=== PATIENT | male | born 1965 | race Caucasian/White ===

== ENCOUNTER 2018-02-07 16:45 | Emergency (ER) | payer OTHER, SELFPAY ==
[2018-02-07 16:54] VITALS: BP 145/100; PULSE 77; RESP 16; O2SAT 96; BMI 27.3
--- NOTE | 2018-02-07 19:29 | ED.UPPEXIN ---
HPI - Extremity Injury (Upper) <Mirlande Hope PA-C - Last Filed: 02/07/18 22:26> General Chief Complaint: Extremity Injury, Upper Stated Complaint: HIT RT THUMB AT WORK Time Seen by Provider: 02/07/18 19:27 Source: patient Mode of arrival: ambulatory Limitations: no limitations History of Present Illness HPI narrative: This 52-year-old left handed gentleman hit his right thumb with a hammer at work. He states it has been sore, swollen and bruised. This happened this morning. He noticed some bleeding under the nail and tried to drain it but was unable due to pain. He denies any other injury, and states that pain and swelling have improved. He does not know the date of his last tetanus vaccine. He denies any other injury Related Data Allergies Allergy/AdvReac Type Severity Reaction Status Date / Time No Known Drug Allergies Allergy Verified 02/07/18 18:21 Review of Systems <Mirlande Hope PA-C - Last Filed: 02/07/18 22:26> Review of Systems All systems reviewed & are unremarkable except as noted in HPI and below Exam <Mirlande Hope PA-C - Last Filed: 02/07/18 22:26> Narrative Exam Narrative: GENERAL APPEARANCE: Patient sitting comfortably, in no distress. LUNGS: Clear to auscultation bilaterally. HEART: Rate and rhythm regular without murmur, normal S1 and S2, no S3 or S4. MUSCULOSKELETAL: Right hand and wrist there is no effusion. He has full range of motion of the wrist and fingers aside from the right thumb, where there is effusion distal to the DIP. ROM is slightly reduced secondary to tenderness, strength is intact in all so against resistance DERMATOLOGIC: Right thumb there is ecchymoses from the PIP distal most notable on the palmar surface, also subungual hematoma noted in the proximal nail 1/3 NEUROVASCULAR: Right hand sensation is grossly intact, some is warm and pink with brisk cap refill Initial Vital Signs Initial Vital Signs: Vital Signs Pulse Rate 77 02/07/18 16:54 Respiratory Rate 16 02/07/18 16:54 Blood Pressure 145/100 H 02/07/18 16:54 Pulse Oximetry 96 02/07/18 16:54 <Ashwin Das MD - Last Filed: 02/08/18 03:14> Initial Vital Signs Initial Vital Signs: Vital Signs Pulse Rate 77 02/07/18 16:54 Respiratory Rate 16 02/07/18 16:54 Blood Pressure 145/100 H 02/07/18 16:54 Pulse Oximetry 96 02/07/18 16:54 Course <Mirlande Hope PA-C - Last Filed: 02/07/18 22:26> Orders Ordered: ED Orders 02/07/18 19:28 XR hand RT min 3V Stat Discontinued Medications Diphtheria/Tetanus/Acell Pertussis (Adacel) 0.5 ml IM .ONCE ONE Stop: 02/07/18 19:43 Last Admin: 02/07/18 20:32 Dose: 0.5 ml Vital Signs - 8 hr 02/07/18 20:53 02/07/18 21:12 Pulse Rate 62 66 Respiratory Rate 15 Blood Pressure 161/105 H Blood Pressure [Right Arm] 161/105 H Pulse Oximetry 97 95 <Ashwin Das MD - Last Filed: 02/08/18 03:14> Orders Ordered: ED Orders 02/07/18 19:28 XR hand RT min 3V Stat Discontinued Medications Diphtheria/Tetanus/Acell Pertussis (Adacel) 0.5 ml IM .ONCE ONE Stop: 02/07/18 19:43 Last Admin: 02/07/18 20:32 Dose: 0.5 ml Vital Signs - 8 hr 02/07/18 20:53 02/07/18 21:12 Pulse Rate 62 66 Respiratory Rate 15 Blood Pressure 161/105 H Blood Pressure [Right Arm] 161/105 H Pulse Oximetry 97 95 MDM - Extremity Injury (Upper) <Mirlande Hope PA-C - Last Filed: 02/07/18 22:26> Imaging Data extremity: Radiologist's impression: View Report History [address] [address] XRay Report Signed Patient: Ashwin Interiano MR#: [id number] : 1965 Acct:[id number] Age/Sex: 52 / M Date of Service: 02/07/18 Loc: ED Accession Number: [id number] Procedure: XR hand RT min 3V Ordering Provider: Mirlande Hope P.A-C PROCEDURE: XR HAND RT MIN 3V INDICATIONS: thumb injury TECHNIQUE: 3 views of the hand(s) acquired. COMPARISON: None. FINDINGS: Bones: No fractures or dislocations. There is a tiny punctate 1 mm calcific density projecting along the radial aspect of the thumb interphalangeal joint however this appears chronic and no donor site is seen therefore probably degenerative sequela. Carpal bones are normally aligned. No suspicious bony lesions. Soft tissues: No suspicious soft tissue calcifications. IMPRESSION: No definite fracture identified. Dictated by: Marcus Hodge M.D. on 02/07/2018 at 20:16 Approved by: Marcus Hodge M.D. on 02/07/2018 at 20:18 Discharge Plan Departure Patient Disposition: Home, Self-Care Clinical Impression: Contusion of right thumb, Subungual hematoma of digit of hand Discharge Date/Time: 02/07/18 21:14 Interventions: ED Discharge Assessment Last Done: 02/07/18 21:12 Activity Restrictions/Additional Instructions: There does not appear to be a fracture in your thumb on the x-ray today, however there is significant swelling and bruising. Please keep the thumb in the splint for pain and protection for now. Take ibuprofen every 8 hr as needed. The bleeding under the nail does not look like it needs to be drained right now, but if it worsens significantly might. Please return if you have any acutely worsening symptoms, and otherwise follow up with your PCP for recheck in about a week if you are not better, and in that case your x-rays may need to be repeated Referrals: [facility] [Provider Group] <Ashwin Das MD - Last Filed: 02/08/18 03:14> Cosign ED Attending Janis Attestation: I was available in the ER department for consultation and assistance if necessary. I agree with the content of the note and the treatment plan.
[2018-02-07] MEDS: TET,DIPH,PERTUSS(ACELL),VAC/PF 0.5 ML SYRINGE IM (20:32)
[2018-02-07 20:53] VITALS: BP 161/105; PULSE 62; O2SAT 97
[2018-02-07 21:12] VITALS: BP 161/105; PULSE 66; RESP 15; O2SAT 95
== END 2018-02-07 21:14 | disposition home or self-care (01) ==
PROVIDERS: Emergency Provider Internal Medicine
DX: S60.011A Contusion of right thumb without damage to nail, initial encounter (principal); S60.111A Contusion of right thumb with damage to nail, initial encounter; W27.8XXA Contact with other nonpowered hand tool, initial encounter
CPT/HCPCS: 73130; 90471; 99282; 99283; 90715